=== PATIENT | female | born 1985 | race Caucasian/White ===

== ENCOUNTER 2025-06-29 19:50 | Emergency (ER) | payer OTHER, SELFPAY ==
[2025-06-29 20:09] VITALS: BP 140/96
[2025-06-30 00:36] VITALS: BP 132/86; BMI 38.6
--- NOTE | 2025-06-30 00:49 | ED.GENMED ---
History of Present Illness
General
Chief Complaint: Musculo-Skeletal Complaint
Source: patient
Exam Limitations: none
Time Seen by Provider: 06/30/25 00:42
Nursing documentation reviewed up to this point in time: agreed with
History of Present Illness
History of Present Illness:
Note:
CHIEF COMPLAINT(S)
Left ankle injury after falling after getting down from a horse
HISTORY OF PRESENT ILLNESS
The patient is a 39-year-old female with past medical history of bipolar disorder, depression, who presented after sustaining an injury to her left ankle while dismounting from a horse yesterday evening around 7 PM. She described the horse as very
tall, and upon dismounting, her left leg folded under her following the landing of her right leg, causing her to fall to the ground. She reported severe pain immediately following the injury, which she described as 'incredibly painful.' Since the
injury, she has been able to bear weight on the ankle and states that elevating the limb while waiting in the emergency department has helped improve her condition somewhat. However, she still experiences significant swelling and expresses that the
ankle feels very sore. The patient denies any numbness or tingling and is noticing improvement in range of motion. She reports that she not fall off the horse but rather fell when she was stepping off of the stirrups. She not hit her head or
injure her neck. She not was consciousness. She denies any other associated injuries.
PHYSICAL EXAM
General: Alert, no acute distress. Well-appearing.
Skin: Warm, dry.
Head: Normocephalic, atraumatic.
Neck: Supple, trachea midline.
Eye Ears, Nose, Mouth, and Throat: Oral mucosa moist.
Cardiovascular: Normal peripheral perfusion, No edema.
Respiratory: Respirations are non-labored.
Musculoskeletal: Ankle joint is stable, negative anterior drawer noted, varus stress noted, no proximal tenderness, normal gait
Neurological: Alert and oriented to person, place, time, and situation, No focal neurological deficit observed.
Psychiatric: Cooperative, appropriate mood & affect.
PLAN
- Obtain an X-ray of the ankle to rule out any fractures.
- Provided ice pack to reduce swelling.
- Consideration of utilizing an air splint to stabilize the ankle and aid in healing, pending X-ray results.
- Discussed the possibility of a walking boot if needed but recommended air splints for this type of injury.
DIFFERENTIAL DIAGNOSIS
The Differential Diagnosis includes, in no particular order and is not limited to:
- Ankle sprain
- Ankle fracture
- Ligament tear
- Tendon injury
- Bone contusion
- Dislocation
- Soft tissue injury
- Stress fracture
- Neurovascular compromise
- Foreign body or infection (less likely given the nature of the injury and lack of skin breach)
CHART REVIEW
Reviewed ER physician documentation from 11/27/2022 patient seen for pelvic cramping and blood clots in
No hospital discharge summary in [facility] to review
MDM/DISPOSITION
The patient is a 39-year-old female with past medical history of bipolar disorder, depression, who presented after sustaining an injury to her left ankle while dismounting from a horse yesterday evening around 7 PM. She described the horse as very
tall, and upon dismounting, her left leg folded under her following the landing of her right leg, causing her to fall to the ground. On physical exam, she has left lateral ankle swelling noted with varus stress however the ankle joint stable she is
able to bear weight comfortably and able to walk without any difficulties. Suspect ankle sprain. X-ray negative for acute fracture or dislocation. Discussed orthopedic follow-up. Discussed strict return precautions. Patient stable for discharge
Past History
Past History
ED Past Medical History: Other (chronic back pain and sees chiropractor 1-2 times a week ) and Other (The patient also has bipolar problems, depression and anxiety ); Negative Arrthythmia, COPD or GERD
ED Past Surgical History: None
Social History
Tobacco: Former smoker
Alcohol: None
Drug: None
Personal:
Living: with family
Employment: Employed
Family History
Family History: Other
Review of Systems
Review of Systems
All Other Systems: ROS reviewed and negative except as documented in HPI and ROS
Phy Exam
Physical Exam
Physical Exam:
see hpi
Course
Orders/Labs/Results
Orders:
Orders
06/30/25 00:56
CR Ankle - Left Min 3 Views Urgent
Reason For Exam: left later ankle pain, swelling
06/30/25 01:58
Air Splint Left-Treatment ONCE
Vital Signs
Initial and Last Documented VS:
Initial Vital Signs
Temp Pulse Resp BP Pulse Ox
98 F 80 16 140/96 100
06/29/25 20:09 06/29/25 20:09 06/29/25 20:09 06/29/25 20:09 06/29/25 20:09
Last Documented Vital Signs
Temp Pulse Resp BP Pulse Ox
98 F 67 16 132/86 98
06/29/25 20:09 06/30/25 00:36 06/30/25 00:36 06/30/25 00:36 06/30/25 00:49
*Pulse Oximetry
SaO2: 98
Oxygen Mode of Delivery: Room air
Patient hypoxic: no
*Critical Care Note
Total Time (30-74mins, 75-104mins- exclusive of procedures): Not Applicable
ED Attending Note
-
Portions of this chart may have been created with voice recognition software.� Occasional wrong word or��sound alike� substitutions may have occurred due to the inherent limitations of voice recognition software.
Discharge Plan
Departure
Patient Disposition: Home (Routine Discharge)
Date of Disposition: 06/30/25
Time of Disposition: 02:21
Patient with high blood pressure during this ER visit?: Yes
Condition: Good
Discharge Problem:
Left ankle sprain
Instructions: Foot sprain - ED (DC), Ankle air splint and elastic bandage, BLOOD PRESSURE
Prescriptions:
No Action
ibuprofen 600 MG tablet
600 mg PO Q4HPRN PRN (Reason: moderate pain/cramps) Qty: 0 0RF
Referrals:
Harry Jovel DPM [Active, Podiatry]
UNKNOWN,NO INTERVIEW [Family Provider]
Activity Restrictions/Additional Instructions:
Weightbearing as tolerated. Please keep your ankle elevated at home. You can use air splint when ambulating. You can take Tylenol Motrin as needed. Please follow-up with your primary care provider.
PLEASE RETURN TO THE ER SHOULD YOU DEVELOP INABILITY TO BEAR WEIGHT OR AMBULATE, INCREASING PAIN OR SWELLING, LOSS OF SENSATION, PALLOR, FEVERS OR CHILLS, OTHER SIGNS OR SYMPTOMS WORRISOME TO YOU.
Interventions
Interventions:
*Risk Screen - Suicide Last Done: 06/29/25 20:09
*General Assessment Last Done: 06/30/25 00:37
*Neglect/Abuse Screening Last Done: 06/30/25 00:37
*ED- Fall Risk Assessment Last Done: 06/30/25 00:37
*ED COVID-19 Vaccine History Last Done: 06/30/25 00:37
*Nursing Disposition Last Done: 06/30/25 02:34
ED-Musculoskeletal Assessment Last Done: 06/30/25 00:39
Discharge Date and Time
Discharge Date/Time: 06/30/25 02:36
Print Language: INDONESIAN
== END 2025-06-30 02:36 | disposition home or self-care (01) ==
LOC: EMR 19:50
PROVIDERS: EMERGENCY PHYSICIAN Emergency Medicine
DX: S93.402A Sprain of unspecified ligament of left ankle, initial encounter (principal); W19.XXXA Unspecified fall, initial encounter; F31.9 Bipolar disorder, unspecified; Z87.891 Personal history of nicotine dependence
CPT/HCPCS: 99283; 73610

== ENCOUNTER → 2025-08-19 15:00 | Outpatient (REF) | payer OTHER, SELFPAY | LOC: DHSLP 15:00 | PROVIDERS: ATTENDING PHYSICIAN Internal Medicine; FAMILY PHYSICIAN Family Medicine | DX: G47.33 Obstructive sleep apnea (adult) (pediatric) (principal) | CPT/HCPCS: 95800 ==